=== PATIENT | female | born 1975 | race Caucasian/White ===

== ENCOUNTER 2018-10-19 19:42 | Emergency (ER) | payer BC ==
[~2018-10-19] VITALS: Ht 157.5 cm; Wt 65.8 kg
[2018-10-19 19:47] VITALS: Ht 157.5 cm; Wt 65.8 kg
[2018-10-19 20:34] LABS: BASOPHIL % 0.3 % (0-2); PLATELET COUNT 234 x10^3mcL (130-400); RED CELL DISTRIBUTION WIDTH 13.8 % (11.5-14.5)
[2018-10-19 21:05] LABS: CALCIUM 8.8 mg/dL (8.5-10.1); CHLORIDE SERUM 102 mmol/L (98-107); CREATININE SERUM 0.8 mg/dL (0.6-1.0); GFR1 > 60 mL/min; GLUCOSE SERUM 182 mg/dL (74-106); POTASSIUM SERUM 3.8 mmol/L (3.5-5.1); SODIUM SERUM 136 mmol/L (136-145)
[2018-10-19 21:17] LABS: ALBUMIN 3.5 g/dL (3.4-5.0); ALKALINE PHOSPHATASE 36 U/L (46-116); ALT/SGPT 21 U/L (14-59); AST/SGOT 23 U/L (15-37); BILIRUBIN TOTAL 0.21 mg/dL (0.20-1.00); MAGNESIUM 1.7 mg/dL (1.8-2.4); TOTAL PROTEIN, SERUM 6.7 g/dL (6.4-8.2)
[2018-10-19 21:44] LABS: AMPHETAMINE QUAL UR NONE DETECTED (See below)
[2018-10-19 22:31] VITALS: BP 127/59
== END 2018-10-19 22:31 | disposition home or self-care (01) ==
LOC: ED 19:42
PROVIDERS: Emergency Medicine
DX: E11.649 Type 2 diabetes mellitus with hypoglycemia without coma (principal); E03.9 Hypothyroidism, unspecified; E78.00 Pure hypercholesterolemia, unspecified; Z88.8 Allergy status to other drugs, medicaments and biological substances; V48.9XXA Unspecified car occupant injured in noncollision transport accident in traffic accident, initial encounter; Y93.89 Activity, other specified; Y92.411 Interstate highway as the place of occurrence of the external cause; Y99.8 Other external cause status
CPT/HCPCS: 36415; 82962

== ENCOUNTER 2018-10-22 21:27 | Inpatient (IN) | payer BC ==
[~2018-10-22] VITALS: Ht 160 cm; Wt 61.7 kg
[2018-10-22 21:37] VITALS: Ht 160 cm; Wt 61.7 kg
[2018-10-22 21:51] LABS: microscopic required? NO
[2018-10-22 21:55] LABS: BASOPHIL % 0.5 % (0-2); PLATELET COUNT 260 x10^3mcL (130-400); RED CELL DISTRIBUTION WIDTH 14.2 % (11.5-14.5)
--- NOTE | 2018-10-22 21:59 | NUR ---
PT BIB [facility] FROM HOME S/P TAKING PILLS DURING A MARITAL ARGUMENT. PT STATES SHE WAS ANGRY WHEN HER WOULD NOT HAVE RELATIONS WITH HER AND WANTED TO CHEAT SO SHE TOOK A COMBINATION OF 70 PILLS OF TYLENOL/MOTRIN/ASA. PT STATES SHE HAS NO ACTIVE SUICIDE PLAN OR THOUGHTS OF SUICIDE AT THIS TIME, BUT THAT SHE BECAME ANGRY AND TOOK THE PILLS. PT STATES HX OF TAKING PILLS/SI WITH FIRST ACT STARTING AT THE AGE OF 8. PT ALSO WITH C/O NAUSEA. NO OTHER COMPLAINTS AT THIS TIME. PT IS CALM AND COOPERATIVE AND IS CLOSE TO THE [facility] STATION FOR BETTER OBSERVATION. NO SIGNS OF DISTRESS AT THIS TIME.
[2018-10-22 22:00] LABS: urine erythrocyte NEGATIVE (NEGATIVE)
[2018-10-22 22:04] LABS: CHLORIDE SERUM 106 mmol/L (98-107); CREATININE SERUM 0.8 mg/dL (0.6-1.0); GFR1 > 60 mL/min; GLUCOSE SERUM 152 mg/dL (74-106); POTASSIUM SERUM 3.9 mmol/L (3.5-5.1); SODIUM SERUM 142 mmol/L (136-145)
[2018-10-22 22:06] LABS: AMPHETAMINE QUAL UR NONE DETECTED (See below)
[2018-10-22 22:15] LABS: ALBUMIN 3.8 g/dL (3.4-5.0); ALKALINE PHOSPHATASE 38 U/L (46-116); ALT/SGPT 24 U/L (14-59); AST/SGOT 19 U/L (15-37); BILIRUBIN TOTAL 0.2 mg/dL (0.20-1.00); TOTAL PROTEIN, SERUM 6.6 g/dL (6.4-8.2)
--- NOTE | 2018-10-22 23:16 | NUR ---
PT LYING ON RT SIDE WITH EYES CLOSED WITH BREATHS EVEN AND UNLABORED WITH NO SIGNS OF DISTRESS AT THIS TIME.
--- NOTE | 2018-10-22 23:53 | NUR ---
REPORT GIVEN TO RIVAS CONRAD.
[2018-10-22 23:59] VITALS: BP 98/62
[2018-10-23 00:24] VITALS: BP 98/62
--- NOTE | 2018-10-23 00:36 | NUR ---
RECEIVED PT FROM ER. PT ADMIT FOR POLY SUBSTANCE OVERDOSE,5150, PT IS A/O X4, VERBAL RESPONSIVE, ABLE TO TELL WHAT SHE NEEDS. LUNG SOUND CLEAR BILATERAL, NO COUGH, NO SOB, PT IS ON TELE 25, NSR, DENY ANY CHEST PAIN OR DISCOMFORT, BOWEL SOUND PRESENT ALL 4 QUADRANTS, NO DISTENTION, NO TENDER. C/O NAUSE AT THIS MOMENT, PEDAL PULSE PRESENT BOTH FEET, NO EDEMA, IV AT LEFT HAND,NO LEAKING, NO INFILTRAITON. PT STATE SHE HAD ARGUMENT WITH SO SHE TOOK SOME PILLS. DENY ANY SUICIDAL IDEA AT THIS MOMENT. PT STATE SHE HAD SUICIDAL ATTEMPTED MANY TIMES IN THE PAST SINCE SHE WAS 8 YEARS OLD. PT IS CALM AND COOPERATED AT THIS MOMENT. PT ALSO ALLOW HER TO COME TO VISIT HER. ALL ADLS ASSIST, SITTER AT BEDSIDE, WILL CONTINUE TO MONITOR. THE PT.
--- NOTE | 2018-10-23 00:40 | NUR ---
ADDITION NOTED: PT HAS INSULIN DEVICE ATTACH TO ABD. ACCORDING TO PT SHE USUALLY CHECK HER SURGER THEN MANNULLY USE DEVICE TO GIVE HER INSULIN. TOLD PT DON'T USE THE MACHINE AT THIS MOMENT UNTIL DOCTOR GIVE THE FURTHER INSTRUCTION DURING THE HOSPITAL. PT VERBALLY STATE SHE UNDERSTAND. ENDORSE ALL INFORMATION TO PRIMARY NURSE HOU[place]ON HATHAWAY.
--- NOTE | 2018-10-23 01:12 | NUR ---
PATIENT INSULIN DEVICE,DR APPLE MADE AWARE.SITTER AT BEDSIDE FOR SAFETY,3690.
--- NOTE | 2018-10-23 01:17 | NUR ---
NS AT 100 CC/ HOUR L HAND 20 GUAGE.
--- NOTE | 2018-10-23 02:56 | NUR ---
NEW ORDER MUCOMYST,RT MARGY AWARE.
[2018-10-23 03:11] LABS: ALBUMIN 3.1 g/dL (3.4-5.0); ALKALINE PHOSPHATASE 34 U/L (46-116); ALT/SGPT 22 U/L (14-59); AST/SGOT 17 U/L (15-37); BILIRUBIN TOTAL 0.18 mg/dL (0.20-1.00); CALCIUM 8.2 mg/dL (8.5-10.1); CARBON DIOXIDE 23.2 mmol/L (21-32); CHLORIDE SERUM 109 mmol/L (98-107); CREATININE SERUM 0.9 mg/dL (0.6-1.0); GFR1 > 60 mL/min; GLUCOSE SERUM 118 mg/dL (74-106); POTASSIUM SERUM 3.4 mmol/L (3.5-5.1); SODIUM SERUM 144 mmol/L (136-145); TOTAL PROTEIN, SERUM 6.1 g/dL (6.4-8.2)
--- NOTE | 2018-10-23 03:15 | NUR ---
PHARMACY CALLED,SAYS TO MAKE SURE GIVE MUCOMYST HHN ON TIME,MARGY MADE AWARE.
--- NOTE | 2018-10-23 04:15 | NUR ---
DR LYNCH MADE AWARE OF LATEST K+ LEVEL 3.4.
--- NOTE | 2018-10-23 04:16 | NUR ---
MUCOMYST PO,4,300 MG GIVEN PO,MIX WITH ICE COLD SPRITE.SWALLOWS WELL.
--- NOTE | 2018-10-23 04:30 | NUR ---
POISON CONTROL CALLED AT THIS TIME,ANSWERED ALL QUESTIONS ASKED.PATIENT DID ABLE TO RETAIN CHARCOAL,MUCOMYST.NO VOMITING NOTED.
--- NOTE | 2018-10-23 05:19 | NUR ---
I AND O MEASURED.NS AT 100 CC/ HOUR.DR CRUMP MADE AWARE OF K+ LEVEL STILL NOT REPLACED.SCD INTACT.
[2018-10-23 05:36] VITALS: BP 110/69
--- NOTE | 2018-10-23 06:26 | NUR ---
PATIENT BLOOD SUGAR IS 348,NO SLIDING SCALE FOUND,MURAGA ORDERED RISS BUT STILL NOT VERIFIED.
[2018-10-23 06:38] LABS: BASOPHIL % 0.2 % (0-2); PLATELET COUNT 238 x10^3mcL (130-400); RED CELL DISTRIBUTION WIDTH 13.7 % (11.5-14.5)
[2018-10-23 06:54] LABS: ALKALINE PHOSPHATASE 28 U/L (46-116); ALT/SGPT 25 U/L (14-59); AST/SGOT 19 U/L (15-37); BILIRUBIN TOTAL 0.1 mg/dL (0.20-1.00); CARBON DIOXIDE 20.2 mmol/L (21-32); CHLORIDE SERUM 106 mmol/L (98-107); GFR1 > 60 mL/min; GLUCOSE SERUM 351 mg/dL (74-106); POTASSIUM SERUM 4.1 mmol/L (3.5-5.1); SODIUM SERUM 143 mmol/L (136-145)
[2018-10-23 07:15] LABS: ALBUMIN 2.8 g/dL (3.4-5.0); TOTAL PROTEIN, SERUM 5.7 g/dL (6.4-8.2)
--- NOTE | 2018-10-23 07:42 | NUR ---
RECEIVED ASLEEP BUT AROUSABLE. IN NO RESP. DISTRESS. VS WNL. NO C/O PAIN OR DISCOMFORT AT THIS TIME. IVF INFUSING WELL AND SITE CLEAR. SITTER AT BEDSIDE. WILL CONTINUE WITH PLAN OF CARE.
[2018-10-23 09:32] VITALS: BP 118/64
--- NOTE | 2018-10-23 11:20 | NUR ---
GLU NOTED 21 AND REPEATED ONE WAS 28. PT ASYMPTOMATIC. ORANGE JUICE WITH 2PKT OF SUGAR GIVEN AND D10% STARTED PER ORDER. DR. DAS MADE AWARE.
--- NOTE | 2018-10-23 12:40 | NUR ---
GLU NOW IS 206. PT EATING LUNCH. NO DISTRESS NOTED.
[2018-10-23] MEDS ORDERED: SYNTHROID0.125 MG PO (14:59)
[2018-10-23] MEDS ORDERED: TRI LINYAH PO (15:00)
[2018-10-23] MEDS ORDERED: ZESTRIL5 MG PO (15:00)
[2018-10-23] MEDS ORDERED: ACYCLOVIR400 MG PO (15:01)
[2018-10-23] MEDS ORDERED: LATANOPROST2.5 ML OU (15:01)
[2018-10-23] MEDS ORDERED: DIFLUCAN150 MG (15:02)
--- NOTE | 2018-10-23 15:22 | NUR ---
RESTING IN BED, TALKING TO HERSELF SOMETIMES, STATED HEARING GOD TELLING HER SHE TOO THE RIGHT DECISION AND TAHT SHE SHOULD NOT BE AFRAID. SITTER AT BEDSIDE. SAFETY MEASURES IN PLACE.WILL CONTINUE TO MONITOR.
[2018-10-23 16:42] LABS: CALCIUM 8.5 mg/dL (8.5-10.1); CARBON DIOXIDE 21.3 mmol/L (21-32); CHLORIDE SERUM 109 mmol/L (98-107); GFR1 > 60 mL/min; GLUCOSE SERUM 220 mg/dL (74-106); SODIUM SERUM 142 mmol/L (136-145)
[2018-10-23 17:31] VITALS: BP 126/75
--- NOTE | 2018-10-23 19:10 | NUR ---
REC'D PT FROM DAY NURSE. VISITOR AT BEDSIDE. PT RESTING IN BED. AAOX4, SPEECH CLEAR, FOLLOWS COMMANDS. TELE 25. DENIES CP, DIZZINESS, OR PALPITATIONS. NO EDEMA NOTED. ABD SOFT/ROUND. REPORTS ABD TENDERNESS ON PALPATION. DENIES PAIN AT REST. NO EDEMA NOTED. VOIDING FREELY. AMBULATORY. SKIN INTACT. IV TO LH PATENT AND INFUSING, SITE WNL. PT IS ON A 5150 HOLD. PT REPORTS INTENTIONALLY OVERDOSING ON ASPIRIN AND STATED SHE "DOES NOT WANT TO BE ON EARTH ANYMORE" BUT IT "MAY NOT BE HER TIME." PT ALSO SPEAKING ABOUT GOD. PT SMILING AND LAUGHING. DOES NOT SEEM TO BE DEPRESSED. MAKES GOOD EYE CONTACT. DR. JORDAN TO EVALUATE THE PT TONIGHT. CALL LIGHT WITHIN REACH, BED AT LOWEST POSITION, SITTER AT BEDSIDE. WILL CONTINUE TO MONITOR.
--- NOTE | 2018-10-23 19:18 | NUR ---
PT REMAINS IN NO DISTRESS. AWAKE AND ALERT. SPOUSE AT BEDSIDE. NO C/O PAIN OR DISCOMFORT AT THIS TIME. NO CHANGES IN VS. SITTER AT BEDSIDE. IVF INFUSING WELL AND SITE WITH NO REDNESS OR SWELLING. DR. BRENNANREES IN TO SEE PT AND UPDATED ON PT CONDITION. WILL BE ENDORSED TO INCOMING SHIFT.
--- NOTE | 2018-10-23 19:50 | NUR ---
DR. JORDAN AT BEDSIDE TO EVALUATE THE PT. PT WILL BE KEPT ON 5150 HOLD AND STARTED ON HALDOL AND LEXAPRO.
--- NOTE | 2018-10-23 21:00 | NUR ---
PT STATES SHE HEARS VOICES. SHE STATES THE VOICE SOUNDS LIKE SOMEONE ON THE RADIO. PT DENIED VOICES ARE TELLING HER TO HURT HERSELF OR OTHERS. HALDOL PO GIVEN PER ORDER. INFORMED PT OF NEW PSYCH MEDS PRESCRIBED AND HANDOUT/EDUCATION PROVIDED FOR HALDOL AND LEXAPRO.
--- NOTE | 2018-10-23 21:22 | NUR ---
REC'D CALL FROM ERICA OF POISON CONTROL. UPDATE GIVEN REGARDING PT INCLUDING CURRENT VITALS, LAST ACETAMINOPHEN 1.3, AND LAST AST/ALT LAB VALUES. RECOMMENDED TO CHECK LFTS NOW AND D/C MUCOMYST IF LFTS WNL. SPOKE TO DR. APPLE AND MADE AWARE. ALSO INFORMED DR. APPLE OF PT'S BS 358. NO SLIDING SCALE BC PT HAS INSULIN PUMP. PER RESIDENT, OK WITHOUT SLIDING SCALE. WILL SPOT CHECK PT'S BS IN THE MIDDLE OF THE NIGHT.
[2018-10-23 21:28] VITALS: BP 130/64
[2018-10-23 22:07] LABS: BILIRUBIN DIRECT 0.07 mg/dL (0.0-0.2); BILIRUBIN TOTAL 0.2 mg/dL (0.20-1.00)
--- NOTE | 2018-10-23 22:49 | NUR ---
Per Steven CONRAD . pt still awaiting medical clearance for psych placement, pt will be evaluated in the AM.
--- NOTE | 2018-10-23 23:38 | NUR ---
SPOKE TO DR. APPLE AND MADE AWARE OF AST/ALT . STATED WILL D/C MUCOMYST.
[2018-10-23 23:52] LABS: AMPHETAMINE QUAL UR NONE DETECTED (See below)
--- NOTE | 2018-10-24 00:38 | NUR ---
PT RESTING IN BED WITH EYES CLOSED. AWAKENS SPONTANEOUSLY. RECHECKED BS, 194. NO COMPLAINTS AT THIS TIME. BREATHING EVEN/UNLABORED ON RA. CALL LIGHT WITHIN [facility], BED AT LOWEST POSITION, SITTER AT BEDSIDE. WILL CONTINUE TO MONITOR.
--- NOTE | 2018-10-24 05:45 | NUR ---
PT AWAKE AND RESTING IN BED. BREATHING EVEN/UNLABORED ON RA. NO SIGNS OF DISTRESS NOTED. WHEN ASKED IF SHE IS STILL HEARING VOICES, PT STATED "I JUST WANT TO GO HOME." BS 275, NO COVERAGE GIVEN D/T INSULIN PUMP. NO OTHER COMPLAINTS AT THIS TIME. CALL LIGHT WITHIN REACH, BED AT LOWEST POSITION, SITTER AT BEDSIDE. WILL ENDORSE TO DAY NURSE.
[2018-10-24 05:55] VITALS: BP 114/69
--- NOTE | 2018-10-24 07:03 | NUR ---
RECEIVED PT FROM FELLING MACHINE OPERATOR NURSE. PT IN BED SLEEPING, AROUSABLE, RESP E/U ON RA. NO ACUTE DISTRESS NOTED. ON TELE 25 SHOWING NSR, HR: 76. IV TO L HAND W/ NO SIGNS OF INFILTRATION, IVF INFUSING WELL. BED IN LOWEST POSITION AND CALL LIGHT WITHIN REACH. ON 5150 HOLD W/ SITTER AT BEDSIDE. WILL CONTINUE TO MONITOR.
[2018-10-24 07:36] LABS: CALCIUM 8.2 mg/dL (8.5-10.1); CARBON DIOXIDE 21.1 mmol/L (21-32); CHLORIDE SERUM 111 mmol/L (98-107); CREATININE SERUM 0.7 mg/dL (0.6-1.0); GFR1 > 60 mL/min; GLUCOSE SERUM 262 mg/dL (74-106); POTASSIUM SERUM 3.8 mmol/L (3.5-5.1); SODIUM SERUM 142 mmol/L (136-145)
[2018-10-24 07:38] LABS: BASOPHIL % 0.3 % (0-2); PLATELET COUNT 214 x10^3mcL (130-400); RED CELL DISTRIBUTION WIDTH 14.5 % (11.5-14.5)
--- NOTE | 2018-10-24 11:19 | NUR ---
Pt not medically clear for placement at [facility] facility per nurse dariel
--- NOTE | 2018-10-24 12:50 | NUR ---
PT IN BED SLEEPING, AROUSABLE, RESP E/U ON RA. NO ACUTE DISTRESS NOTED. BED IN LOWEST POSITION AND CALL LIGHT WITHIN REACH. SITTER AT BEDSIDE. WILL CONTINUE TO MONITOR.
--- NOTE | 2018-10-24 14:27 | NUR ---
Contacted the following facilities regarding placement: No beds available at this time, packet faxed for waitlist: [facility] (s[facility]ata),[facility] (s/w Jewels), [facility] (s/w Lucrecia). The following facilities declined to take pt due to pt insulin pump: [facility] (s[facility]w Ildefonso), [facility] (s/w Sis), [facility] (s/wLmerna), [facility] (s/w Derrick) Will continue to look for placement, will contact with any updates.
[2018-10-24 16:26] VITALS: BP 105/61
--- NOTE | 2018-10-24 18:50 | NUR ---
PT IN BED SLEEPING, AROUSABLE, RESP E/U ON RA. NO ACUTE DISTRESS NOTED. IV TO L HAND W/ NO SIGNS OF INFILTRATION, IVF INFUSING WELL. BED IN LOWEST POSITION AND CALL LIGHT WITHIN REACH. WILL ENDORSE TO ONCOMING NURSE.
[2018-10-24 19:36] VITALS: BP 120/76
--- NOTE | 2018-10-24 21:24 | NUR ---
PT'S IN BED AAOX4 NO ACUTE DISTRESS NOTED DENY SUICIDAL IDEATION AT THE MOMENT , SITTER AT THE BED SIDE FOR SAFETY , LUNG SOUNDS CTA , ABD SOFT BS ACTIVE X4, HL INTACT FLUSHING WELL , SITTER AT THE BEDSIDE FOR SAFETY , CALL LIGHT WITHIN PT'S REACH , WILL CON'T TO MONITOR AND ASSIST PT WITH CARE .
--- NOTE | 2018-10-25 00:16 | NUR ---
GLU WAS 219 PT USED HER INSULIN PUMP ADM. 1.3 UNIT.
--- NOTE | 2018-10-25 02:50 | NUR ---
PT'S IN BED WITH EYES CLOSED , RESP EVEN , PIV INTACT INFUSING WELL , SITTER AT THE BEDSIDE FOR SAFETY .
--- NOTE | 2018-10-25 04:28 | NUR ---
I HAVE REVIEWED THE DATA COLLECTION BY MITUL (NAME):MARCI RUSH ENTERED ON (DATE/TIME):10/24 I CONCUR WITH THE DATA AND ANY EXCEPTIONS OR COMMENTS ARE LISTED BELOW:
[2018-10-25 05:27] VITALS: BP 113/68
--- NOTE | 2018-10-25 06:36 | NUR ---
NO CHANGES OF CONDITION NOTED, ALL DUE MEDS GIVEN NO REACTION NOTED, PIV INTACT INFUSING WELL , PT DENY SUICIDAL IDEATION THROUGHOUT THE SHIFT , SITTER AT BED SIDE FOR SAFETY .
[2018-10-25 07:32] LABS: CALCIUM 8.3 mg/dL (8.5-10.1); CARBON DIOXIDE 23.7 mmol/L (21-32); CHLORIDE SERUM 113 mmol/L (98-107); CREATININE SERUM 0.6 mg/dL (0.6-1.0); GFR1 > 60 mL/min; GLUCOSE SERUM 114 mg/dL (74-106); SODIUM SERUM 145 mmol/L (136-145)
[2018-10-25 07:35] LABS: BASOPHIL % 0.4 % (0-2); PLATELET COUNT 198 x10^3mcL (130-400); RED CELL DISTRIBUTION WIDTH 14.4 % (11.5-14.5)
[2018-10-25 09:19] VITALS: BP 110/63
--- NOTE | 2018-10-25 10:18 | NUR ---
AT 0710 - RECEIVED PATIENT FROM NIGHT NURSE. AWAKE, ALERT AND ORIENTED. DENIES ANY PAIN. IV INFUSING NS AT 75 ML/HR. NPO FOR POSSIBLE PROCEDURE. AT 0830 - CALL [facility] FOR DR CALLEJAS TO SEE IF PATIENT IS ALLOWED DIET. PATIENT C/O HUNGER. AT 0900 - DR GUERRERO AT BEDSIDE FOR DEBRIDEMENT PROCEDURE. SIGNED CONSENT OBTAINED BY DOCTOR. AT 0915 - DEBRIDEMENT OF R 4TH TOE DONE BY DR GUERRERO AT BEDSIDE. WOUND CULTURE TAKEN. DRESSING APPLIED BY AND WOUND ORDERS RECEIVED. WOUND CULTURE DELIVERED TO LAB. PATIENT C/O PAIN. MEDICATED WITH NORCO PER EMAR. DIET ORDER RECEIVED. AT 1010 - RESTING QUIETLY. HAS EATEN. REPORTS THAT PAIN HAS RESOLVED.
--- NOTE | 2018-10-25 10:26 | NUR ---
AT 0715 - RECEIVED PATIENT FROM NIGHT NURSE. SLEEPING. RESPIRATIONS REGULAR. 1:1 SITTER IN ROOM WITH PATIENT. AT 0740 - AWAKE, ALERT AND ORIENTED TO PERSON, PLACE AND TIME. SITTING UP IN BED EATING BREAKFAST. AT 1000 - PAITENT IS QUIET, CALM AND PELASANT.
--- NOTE | 2018-10-25 13:57 | NUR ---
AT 1150 - BLOOD GLUCOSE 148. PATIENT ENTERED LEVEL INTO HER INSULIN PUMP. AT 1330 - HAS EATEN LUNCH. RESTING QUIETLY. NO COMPLAINTS.
[2018-10-25 17:28] VITALS: BP 116/67
[2018-10-25 17:42] VITALS: BP 110/63
--- NOTE | 2018-10-25 17:56 | NUR ---
AT 1630 - PATIENT REQUESTED TO SPEAK WITH NURSE. SAYS THAT SHE WAS TOLD BY DR JORDAN THAT SHE CAN BE DISCHARGED HOME WHEN MEDICALLY CLEARED. AT 1645 - DR JORDAN PER PHONE. HE HAS TAKEN OFF 5150. KRYSTAL MAY BE DISCHARGED HOME FROM [facility]. AT CHARGE NURSE CALLING LAMONT JOHN. AT 1710 - RECEIVED DISCHARGE ORDER. PATIENT WILL EAT DINNER AND DC HOME AFTER. HER WILL BE COMING IN WITHIN THE HOUR. PATIENT'S LAST BLOOD GLUCOSE LEVEL WAS 256. PATIENT ENTERED LEVEL INTO HER INSULIN PUMP.
--- NOTE | 2018-10-25 18:52 | NUR ---
AT 1845 - PRINTED DISCHARGE INSTRUCTIONS GIVEN AND EXPLAINED TO PATIENT. PATIENT'S OWN EYE DROPS RETURNED. IV CATHETER REMOVED ITNACT. AT 185 - DISCHARGED HOME WITH . TAKEN TO CAR IN WHEELCHAIR BY JACQUI.
== END 2018-10-25 18:51 | disposition home or self-care (01) | DRG 918 ==
LOC: ED 21:27 → DU 23:04 → MU 10-24 14:07
PROVIDERS: General Practice; Specialist; ADMIT Internal Medicine
DX: T39.012A Poisoning by aspirin, intentional self-harm, initial encounter (principal); E44.0 Moderate protein-calorie malnutrition; T39.1X2A Poisoning by 4-Aminophenol derivatives, intentional self-harm, initial encounter; T39.312A Poisoning by propionic acid derivatives, intentional self-harm, initial encounter; F32.9 Major depressive disorder, single episode, unspecified; E03.9 Hypothyroidism, unspecified; E11.9 Type 2 diabetes mellitus without complications; E78.00 Pure hypercholesterolemia, unspecified; I10 Essential (primary) hypertension; F41.9 Anxiety disorder, unspecified; F90.9 Attention-deficit hyperactivity disorder, unspecified type; Z91.5 Personal history of self-harm; Y92.098 Other place in other non-institutional residence as the place of occurrence of the external cause; Z68.26 Body mass index [BMI] 26.0-26.9, adult; Z79.899 Other long term (current) drug therapy; Z79.84 Long term (current) use of oral hypoglycemic drugs
CPT/HCPCS: 36600; 82962; B4164; G0378; G0480; J0132; J2405; J3490; J7030

== ENCOUNTER 2019-06-23 11:31 | Emergency (ER) | payer OTHER ==
[~2019-06-23] VITALS: Ht 162.6 cm; Wt 65.8 kg
[~2019-06-23 11:31] MED LIST: ACYCLOVIR400 MG PO; DIFLUCAN150 MG; LATANOPROST2.5 ML OU; SYNTHROID0.125 MG PO; TRI LINYAH PO; ZESTRIL5 MG PO
[2019-06-23 11:34] VITALS: Ht 162.6 cm; Wt 65.8 kg
[2019-06-23 12:12] LABS: BASOPHIL % 0.5 % (0-2); PLATELET COUNT 216 x10^3mcL (130-400); RED CELL DISTRIBUTION WIDTH 13.8 % (11.5-14.5)
[2019-06-23 12:27] LABS: urine erythrocyte NEGATIVE (NEGATIVE)
[2019-06-23 12:30] LABS: CARBON DIOXIDE 26.2 mmol/L (21-32); CHLORIDE SERUM 104 mmol/L (98-107); CREATININE SERUM 0.8 mg/dL (0.6-1.0); GFR1 > 60 mL/min; GLUCOSE SERUM 84 mg/dL (74-106); POTASSIUM SERUM 4.3 mmol/L (3.5-5.1); SODIUM SERUM 139 mmol/L (136-145)
[2019-06-23 12:31] LABS: microscopic required? YES
[2019-06-23 12:39] LABS: ALBUMIN 3.7 g/dL (3.4-5.0); ALKALINE PHOSPHATASE 36 U/L (46-116); ALT/SGPT 29 U/L (14-59); AST/SGOT 24 U/L (15-37); BILIRUBIN TOTAL 0.3 mg/dL (0.20-1.00); TOTAL PROTEIN, SERUM 7.4 g/dL (6.4-8.2)
[2019-06-23 13:19] LABS: AMPHETAMINE QUAL UR NONE DETECTED (See below)
[2019-06-24 20:02] VITALS: BP 108/70
== END 2019-06-23 20:02 | disposition home or self-care (01) ==
LOC: ED 11:31
PROVIDERS: Emergency Medicine
DX: F31.9 Bipolar disorder, unspecified (principal); F90.9 Attention-deficit hyperactivity disorder, unspecified type; F43.10 Post-traumatic stress disorder, unspecified; E11.9 Type 2 diabetes mellitus without complications; E78.00 Pure hypercholesterolemia, unspecified; I10 Essential (primary) hypertension; E03.9 Hypothyroidism, unspecified; Z88.8 Allergy status to other drugs, medicaments and biological substances; X58.XXXA Exposure to other specified factors, initial encounter; Y93.89 Activity, other specified; Y92.89 Other specified places as the place of occurrence of the external cause; Y99.8 Other external cause status
CPT/HCPCS: 36415; 82962; G0480